=== PATIENT | female | born 1960 | race Caucasian/White ===

== ENCOUNTER 2021-01-18 13:57 | Emergency (ER) | payer BC ==
--- NOTE | 2021-01-18 15:41 | EDM.PDOC ---
ED HPI GENERAL MEDICAL PROBLEM - General Chief Complaint: Respiratory Problem Stated Complaint: POSITIVE COVID EXTENDED SYMPTOMS Time Seen by Provider: 01/18/21 14:23 Source of Information: Reports: Patient, RN Notes Reviewed History Limitations: Reports: No Limitations - History of Present Illness INITIAL COMMENTS - FREE TEXT/NARRATIVE: Patient is a 60-year-old female presenting to the emergency department with complaints of ongoing fatigue, cough, and exhaustion with a diagnosis of Covid on January 02. She reports that when she initially was diagnosed, she did have intermittent fevers as well as nausea, but this has resolved. She denies any significant shortness of breath but states that she does become tired out very easily. She has to plan her activities in order to decrease exhaustion. She reports loss of taste and smell which is still present. Cough is mildly productive. Denies any significant chest pain. 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 Chest Pain Score (Numeric/FACES): 0 - Related Data Allergies Allergy/AdvReac Type Severity Reaction Status Date / Time No Known Allergies Allergy Verified 01/18/21 14:26 Home Meds: Home Meds Cefdinir 300 mg PO BID 5 Days #9 capsule 01/18/21 [Rx] dexAMETHasone [Dexamethasone] 4 mg PO BID 5 Days #9 tab 01/18/21 [Rx] Past Medical History - Past Health History Medical/Surgical History: Denies Medical/Surgical History Gastrointestinal History: Reports: GERD Other Gastrointestinal History: left ovary removed in 2007 in [place] Genitourinary History: Reports: Renal Calculus Other Genitourinary History: passed a kidney stone in 1999 [employer]LE[employer]ONE [employer] History: Reports: Other [employer]LEPHONE [employer]OX [employer]OR History: 2007 removed left ovary Musculoskeletal History: Reports: Fracture 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 dermatology appt in December w/ Dr. Duong at [facility] - Infectious Disease History Infectious Disease History: Reports: Chicken Pox, Measles, Mumps, Novel Coronavirus - Past Surgical History GI Surgical History: Reports: Other (See Below) Other GI Surgeries/Procedures: diverticulitis Female Surgical History: Reports: Hysterectomy Social & Family History - Tobacco Use Tobacco Use Status *Q: Never Tobacco User Second Hand Smoke Exposure: No - Caffeine Use Caffeine Use: Reports: None - Recreational Drug Use Recreational Drug Use: No - Living Situation & Occupation Living situation: Reports: Occupation: Employed ED ROS GENERAL - Review of Systems Review Of Systems: See Below Constitutional: Reports: Weakness, Fatigue. Denies: Fever HEENT: Reports: No Symptoms Respiratory: Reports: Shortness of Breath, Cough. Denies: Pleuritic Chest Pain Cardiovascular: Reports: No Symptoms. Denies: Chest Pain, Syncope Endocrine: Reports: No Symptoms GI/Abdominal: Reports: No Symptoms : Reports: No Symptoms Musculoskeletal: Reports: No Symptoms Skin: Reports: No Symptoms Neurological: Reports: No Symptoms Psychiatric: Reports: No Symptoms Hematologic/Lymphatic: Reports: No Symptoms Immunologic: Reports: No Symptoms ED EXAM, GENERAL - Physical Exam Exam: See Below General Appearance: Alert, WD/WN, No Apparent Distress Respiratory/Chest: No Respiratory Distress, Lungs Clear, Normal Breath Sounds, No Accessory Muscle Use, Chest Non-Tender Cardiovascular: Normal Peripheral Pulses, Regular Rate, Rhythm, No Edema, No Gallop, No JVD, No Murmur, No Rub GI/Abdominal: Normal Bowel Sounds, Soft, Non-Tender, No Organomegaly, No Distention, No Abnormal Bruit, No Mass Neurological: Alert, Oriented, CN II-XII Intact, Normal Cognition, Normal Gait, Normal Reflexes, No Motor/Sensory Deficits Psychiatric: Normal Affect, Normal Mood Skin Exam: Warm, Dry, Intact, Normal Color, No Rash #1 Interpretation EKG Date: 01/18/21 Time: 14:26 Rhythm: NSR Rate (Beats/Min): 109 [place]: Normal P-Wave: Present QRS: RBBB ST-T: Normal QT: Normal Course - Vital Signs Last Recorded V/S: Last Vital Signs Temp 97.6 F 01/18/21 19:00 Pulse 99 01/18/21 19:00 Resp 12 01/18/21 19:00 BP 114/76 01/18/21 19:00 Pulse Ox 94 L 01/18/21 19:00 - Orders/Labs/Meds Labs: Laboratory Tests 01/18/21 01/18/21 01/18/21 Range/Units 14:49 14:49 14:49 WBC 6.27 (3.98-10.04) K/mm3 RBC 5.16 (3.98-5.22) M/mm3 Hgb 15.4 D (11.2-15.7) gm/dl Hct 43.2 (34.1-44.9) % MCV 83.7 D (79.4-94.8) fl MCH 29.8 (25.6-32.2) pg MCHC 35.6 H (32.2-35.5) g/dl RDW Std Deviation 40.9 (36.4-46.3) fL Plt Count 160 L (182-369) K/mm3 MPV 10.3 (9.4-12.3) fl Neut % (Auto) 79.4 H (34.0-71.1) % Lymph % (Auto) 6.7 L (19.3-51.7) % [place] % (Auto) 13.2 H (4.7-12.5) % Eos % (Auto) 0.2 L (0.7-5.8) Baso % (Auto) 0.2 (0.1-1.2) % Neut # (Auto) 4.98 (1.56-6.13) K/mm3 Lymph # (Auto) 0.42 L (1.18-3.74) K/mm3 [place] # (Auto) 0.83 H (0.24-0.36) K/mm3 Eos # (Auto) 0.01 L (0.04-0.36) K/mm3 Baso # (Auto) 0.01 (0.01-0.08) K/mm3 Manual Slide Review Abnormal smear D-Dimer, Quantitative 3.29 H (0.19-0.50) mg/L Sodium 132 L (136-145) mEq/L Potassium 4.2 (3.5-5.1) mEq/L Chloride 94 L (98-107) mEq/L Carbon Dioxide 29 (21-32) mEq/L Anion Gap 13.2 (5-15) BUN 12 (7-18) mg/dL Creatinine 1.0 (0.55-1.02) mg/dL Est Cr Clr Drug Dosing 50.37 mL/min Estimated GFR (MDRD) 56 (>60) mL/min BUN/Creatinine Ratio 12.0 L (14-18) Glucose 191 H (70-99) mg/dL Calcium 8.7 (8.5-10.1) mg/dL Total Bilirubin 1.4 H (0.2-1.0) mg/dL AST 24 (15-37) U/L ALT 24 (14-59) U/L Alkaline Phosphatase 43 L (46-116) U/L Troponin I < 0.017 (0.00-0.056) ng/mL C-Reactive Protein 21.6 H* (<1.0) mg/dL NT-Pro-B Natriuret Pep (0-125) pg/mL Total Protein 6.3 L (6.4-8.2) g/dl Albumin 2.6 L (3.4-5.0) g/dl Globulin 3.7 gm/dL Albumin/Globulin Ratio 0.7 L (1-2) Urine Color (Yellow) Urine Appearance (Clear) Urine pH (5.0-8.0) Ur Specific Golden (1.005-1.030) Urine Protein (Negative) Urine Glucose (UA) (Negative) Urine Ketones (Negative) Urine Occult Blood (Negative) Urine Nitrite (Negative) Urine Bilirubin (Negative) Urine Urobilinogen (0.2-1.0) Ur Leukocyte Esterase (Negative) Urine RBC (0-5) /hpf Urine WBC (0-5) /hpf Ur Squamous Epith Cells (0-5) /hpf Urine Bacteria (FEW) /hpf Urine Mucus (FEW) /hpf 01/18/21 01/18/21 Range/Units 14:49 17:40 WBC (3.98-10.04) K/mm3 RBC (3.98-5.22) M/mm3 Hgb (11.2-15.7) gm/dl Hct (34.1-44.9) % MCV (79.4-94.8) fl MCH (25.6-32.2) pg MCHC (32.2-35.5) g/dl RDW Std Deviation (36.4-46.3) fL Plt Count (182-369) K/mm3 MPV (9.4-12.3) fl Neut % (Auto) (34.0-71.1) % Lymph % (Auto) (19.3-51.7) % [place] % (Auto) (4.7-12.5) % Eos % (Auto) (0.7-5.8) Baso % (Auto) (0.1-1.2) % Neut # (Auto) (1.56-6.13) K/mm3 Lymph # (Auto) (1.18-3.74) K/mm3 [place] # (Auto) (0.24-0.36) K/mm3 Eos # (Auto) (0.04-0.36) K/mm3 Baso # (Auto) (0.01-0.08) K/mm3 Manual Slide Review D-Dimer, Quantitative (0.19-0.50) mg/L Sodium (136-145) mEq/L Potassium (3.5-5.1) mEq/L Chloride (98-107) mEq/L Carbon Dioxide (21-32) mEq/L Anion Gap (5-15) BUN (7-18) mg/dL Creatinine (0.55-1.02) mg/dL Est Cr Clr Drug Dosing mL/min Estimated GFR (MDRD) (>60) mL/min BUN/Creatinine Ratio (14-18) Glucose (70-99) mg/dL Calcium (8.5-10.1) mg/dL Total Bilirubin (0.2-1.0) mg/dL AST (15-37) U/L ALT (14-59) U/L Alkaline Phosphatase (46-116) U/L Troponin I (0.00-0.056) ng/mL C-Reactive Protein (<1.0) mg/dL NT-Pro-B Natriuret Pep 194 H (0-125) pg/mL Total Protein (6.4-8.2) g/dl Albumin (3.4-5.0) g/dl Globulin gm/dL Albumin/Globulin Ratio (1-2) Urine Color Yellow (Yellow) Urine Appearance Slt cloudy H (Clear) Urine pH 7.0 (5.0-8.0) Ur Specific Golden 1.025 (1.005-1.030) Urine Protein 1+ H (Negative) Urine Glucose (UA) Negative (Negative) Urine Ketones 2+ H (Negative) Urine Occult Blood Trace-intact H (Negative) Urine Nitrite Positive H (Negative) Urine Bilirubin Negative (Negative) Urine Urobilinogen >=8.0 H (0.2-1.0) Ur Leukocyte Esterase 1+ H (Negative) Urine RBC 0-5 (0-5) /hpf Urine WBC 5-10 H (0-5) /hpf Ur Squamous Epith Cells 10-20 H (0-5) /hpf Urine Bacteria Many H (FEW) /hpf Urine Mucus Few (FEW) /hpf Meds: Medications Discontinued Medications Generic Name Dose Route Start Last Admin Trade Name Kathya PRN Reason Stop Dose Admin Cefdinir 300 mg 01/18/21 18:28 01/18/21 18:45 Cefdinir 300 Mg Cap PO 01/18/21 18:29 300 mg ONETIME ONE Administration Dexamethasone 4 mg 01/18/21 18:28 01/18/21 18:45 Dexamethasone 4 Mg Tab PO 01/18/21 18:29 4 mg ONETIME ONE Administration Sodium Chloride 100 mls @ 60 mls/hr 01/18/21 16:00 01/18/21 16:26 Normal Saline IV 60 mls/hr ASDIRECTED DARLENE Administration Iopamidol 100 ml 01/18/21 15:53 01/18/21 16:25 Iopamidol 755 Mg/Ml 100 Ml Bottle IVPUSH 01/18/21 15:54 100 ml ONETIME ONE Administration Sodium Chloride 10 ml 01/18/21 15:53 01/18/21 16:25 Sodium Chloride 0.9% 10 Ml Syringe FLUSH 10 ml ONETIME PRN Administration Keep Vein Open - Re-Assessments/Exams Free Text/Narrative Re-Assessment/Exam: 01/18/21 18:24 Hematology significant for D-dimer elevated at 3.29, sodium slightly low at 132, CRP 21.6. Troponin is undetectably low. Patient has not provided urine sample thus far. Given her history of factor V and significantly elevated D-dimer, I have ordered CT angiogram of the chest to be completed. 01/18/21 18:25 Urinalysis is positive for both nitrates and 1+ site esterase. CT scan of the chest shows: 1. No CT evidence of pulmonary embolism. 2. Severe bilateral interstitial disease suspect for pneumonia. Consider viral etiology, bacterial etiology, atypical etiologies. Given patient's known diagnosis of Covid, patient is suffering from Covid pneumonia. Oxygen saturations have maintained 95 to 97% on room air throughout her stay in the ER. I will start her on dexamethasone to help with her Covid symptoms as well as Omnicef for treatment of urinary tract infection. She will be sent home with a pulse oximeter. I would like her to follow-up in the clinic towards the end of the week or early next week to ensure she is getting better. Discussed return precautions. Discharge instructions as documented. Departure - Departure Time of Disposition: 18:25 Disposition: Home, Self-Care 01 Condition: Good Clinical Impression: COVID-19 Urinary tract infection Qualifiers: Urinary tract infection type: site unspecified Hematuria presence: without hematuria Qualified Code(s): N39.0 - Urinary tract infection, site not specified - Discharge Information *PRESCRIPTION DRUG MONITORING PROGRAM REVIEWED*: No *COPY OF PRESCRIPTION DRUG MONITORING REPORT IN PATIENT KAMLESH: No Prescriptions: Cefdinir 300 mg PO BID 5 Days #9 capsule dexAMETHasone [Dexamethasone] 4 mg PO BID 5 Days #9 tab Instructions: COVID-19 Referrals: PCP,None [Primary Care Provider] - Forms: ED Department Discharge Additional Instructions: You were seen in the emergency department today for ongoing cough, fatigue, shortness of breath associate with COVID-19. Work-up included blood work, urinalysis, EKG, chest x-ray, and a CT angiogram of your chest. Results of your work-up show that you do have a viral pneumonia caused by COVID-19. You have no blood clots in your lungs. Your cardiac markers were normal. Urinalysis does show signs of urinary tract infection. Unfortunately there is no specific treatment for a viral pneumonia. You have been started on dexamethasone which is a steroid to help reduce inflammation. Take this as prescribed. You been started on Omnicef for treatment of urinary tract infection. You did receive a first dose of both these medications this evening, therefore you are not start taking them at home until tomorrow morning. You have been sent home with a pulse oximeter. Recommend checking your oxygen saturations periodically throughout the day. If you are maintaining an oxygen below 90% or you experience any other worsening symptoms of concern, you should return to the emergency department for reevaluation. I would like you to follow-up in the clinic on either Monday of this week or Monday of next week for reevaluation to ensure that you are getting better. Referral has been sent to Mary Najera NP. Sepsis Event Note (ED) - Evaluation Sepsis Screening Result: No Definite Risk
[2021-01-18] MEDS ORDERED: Sodium Chloride 0.9% 10 ML Syringe FLUSH PRN (15:53)
[2021-01-18] MEDS ORDERED: Iopamidol 755 Mg/ML 100 ML Bottle IVPUSH ONE (15:53)
[2021-01-18] MEDS ORDERED: Sodium Chloride 0.9% 100 ML IV SCH (16:00)
[2021-01-18] MEDS ORDERED: Dexamethasone 4 MG Tab PO ONE (18:28)
[2021-01-18] MEDS ORDERED: Cefdinir 300 MG Cap PO ONE (18:28)
[2021-01-18 19:09] VITALS: BP 114/76; PULSE 99
--- NOTE | 2021-01-19 06:56 | CR ---
Chest: Portable view of the chest is obtained. Comparison: No prior chest imaging is available. Patchy areas of increased density are seen asymmetrically which are worse on the right side. Heart size and mediastinum are normal. Bony structures show nothing acute. Impression: 1. Patchy areas of increased density on both sides of the chest which are suspicious for COVID pneumonia. Diagnostic code #3
--- NOTE | 2021-01-19 07:44 | CT ---
CT chest Technique: Multiple axial sections through the chest were obtained. Intravenous contrast was utilized. Study has been performed as a pulmonary angiogram protocol. Comparison: Prior chest x-ray performed earlier on the same day (2:45 PM). Thoracic aorta shows no aneurysm. Pulmonary arteries are well opacified. No filling defects are seen to indicate pulmonary embolism. Mediastinum shows no adenopathy. Atherosclerotic change is seen within the coronary artery. Moderate hiatal hernia is noted. Calcified granuloma is noted within the upper right lobe of the liver. Spleen measures slightly prominent at roughly 13 cm. Patchy areas of increased density are seen on both sides of the chest, worse on the right side. Findings are most likely due to pneumonia. No pleural effusions are seen. Bone window settings were reviewed which show minimal degenerative change within the spine. Impression: 1. No findings of pulmonary embolism. 2. Spleen measures slightly prominent. Atherosclerotic change is noted within the coronary arteries. 3. Diffuse parenchymal densities on both sides of the chest, asymmetrically worse on the right side. These findings are most likely due to COVID pneumonia. Diagnostic code #3 I agree with preliminary report from [facility], finalized on 01/18/21, 5:35 PM CDT, code 1
== END 2021-01-18 19:05 | disposition home or self-care (01) ==
LOC: JD.ED 13:57
DX: U07.1 COVID-19 (principal); N39.0 Urinary tract infection, site not specified; I45.10 Unspecified right bundle-branch block; R79.1 Abnormal coagulation profile
CPT/HCPCS: 36415; 71045; 71275; 80053; 81001; 83880; 84484; 85025; 85379; 86140; 87086; 87088; 87186; 93005; 99285; A9270; J8540; Q9967; 99283